=== PATIENT | female | born 1950 | race Two or more races ===

== ENCOUNTER 2022-11-02 17:59 | Inpatient (IN) | payer MEDICARE, OTHER ==
[~2022-11-02] VITALS: Ht 160 cm; Wt 95.3 kg
--- NOTE | 2022-11-02 18:26 | NUR ---
Jonatan AOx4, able to express her concerns. States she has had diarrhea x4 days. Generalized edema and weakness. Discussed plan of care, patient verbalized agreement. All safety precautions taken.
[2022-11-02] MEDS ORDERED: IV NS 0.9% 1,000 ML BAG IV ONE (18:30)
--- NOTE | 2022-11-02 18:50 | NUR ---
Cultures collected, sent to lab
--- NOTE | 2022-11-02 18:50 | NUR ---
Urine collected, sent to lab
[2022-11-02 19:06] LABS: BASOPHILS # (AUTO) 0.1 K/uL (0.0-0.2); BASOPHILS % (AUTO) 0.3 % (0.0-2.0); EOSINOPHILS % (AUTO) 0.2 % (0.0-6.0); HEMATOCRIT 35 % (33-45); HEMOGLOBIN 10.9 g/dL (11.5-14.8); LYMPHOCYTES # (AUTO) 0.7 K/uL (0.8-4.8); LYMPHOCYTES % (AUTO) 2.5 % (20.0-44.0); MEAN CORPUSCULAR HGB CONC 32 g/dl (31.0-36.0); MEAN CORPUSCULAR VOLUME 97 fL (82-100); MONOCYTES # (AUTO) 2.4 K/uL (0.1-1.30); MONOCYTES % (AUTO) 8.5 % (2.0-12.0); NEUTROPHILS # (AUTO) 25.5 K/uL (1.8-8.9); NEUTROPHILS % (AUTO) 88.5 % (43.0-81.0); PLATELET COUNT (AUTO) 225 K/uL (150-450); RED BLOOD CELL COUNT(AUTO) 3.55 MIL/uL (4.0-5.2); WHITE BLOOD COUNT (AUTO) 28.7 K/uL (4.3-11.0)
[2022-11-02 19:18] LABS: CALCIUM, SERUM 8.6 mg/dL (8.5-10.1); CARBON DIOXIDE 31 mmol/L (21-32); CHLORIDE 96 mmol/L (98-107); CREATININE 2.6 mg/dL (0.6-1.3); GLUCOSE 107 mg/dL (74-106); SODIUM SERUM 134 mmol/L (136-145); UREA NITROGEN, BLOOD 42 mg/dL (7-18)
[2022-11-02 19:31] LABS: ALANINE AMINOTRANSFERASE 13 U/L (12-78); ALBUMIN 2.1 g/dL (3.4-5.0); ALKALINE PHOSPHATASE 111 U/L (46-116); ASPARTATE AMINOTRANSFERASE 9 U/L (15-37); BILIRUBIN,DIRECT 0.2 mg/dL (0.0-0.2); BILIRUBIN,TOTAL 0.5 mg/dL (0.2-1.0); TOTAL PROTEIN, SERUM 5.8 g/dL (6.4-8.2)
--- NOTE | 2022-11-02 20:54 | NUR ---
MOVE SHEET SUBMITTED
[2022-11-02] MEDS ORDERED: VANCOMYCIN HCL 1.25 GM in IV D5W 260 ML IV ONE (21:00)
[2022-11-02] MEDS ORDERED: PIPERACILLIN /TAZOBACTAM 2.25 G in IV D5W 50 ML IV ONE (21:00)
[2022-11-02] MEDS ORDERED: VANCOMYCIN 1 GM /D5W 250 ML PB IV ONE (21:17)
[2022-11-02] MEDS ORDERED: PIPERACI/TAZO 3.375GM/D5W 50ML PB IV ONE (21:17)
[2022-11-02] MEDS ORDERED: VANCOMYCIN 1 GM in IV D5W 250 ML IV ONE (22:00)
[2022-11-02] MEDS ORDERED: MORPHINE SULFATE INJ 2 MG/ML DISP.SYRIN IV PRN (22:30)
[2022-11-03] VITALS (28 sets, daily range): BP systolic 69–142; BP diastolic 39–87
[2022-11-03] MEDS: IV NS 0.9% 1,000 ML IV SCH ×3 (01:19→19:34)
--- NOTE | 2022-11-03 01:25 | NUR ---
STOOL SPECIMENT FOR CDIFF SENT TO LAB
--- NOTE | 2022-11-03 01:30 | NUR ---
Pt with loose stool. Bottom excoriated. C-diff sample sent to lab.
--- NOTE | 2022-11-03 03:02 | NUR ---
Texted Dr. Key regarding persisitent hypotention of SBP in the 70's to 80's over Diastolic os 40's-50's.
--- NOTE | 2022-11-03 03:10 | NUR ---
Dr. Key upgraded pt. to ICU and to start levophed.
--- NOTE | 2022-11-03 03:22 | NUR ---
ICU 254
[2022-11-03] MEDS ORDERED: NOREPINEPHRINE 8MG/250ML RTU 250 ML IV ONE (03:25)
[2022-11-03] MEDS ORDERED: NOREPINEPHRINE 8 MG in IV NS 0.9% 242 ML IV PRN ×2 (03:30→05:00)
--- NOTE | 2022-11-03 03:59 | NUR ---
Levophed started at 0.1mcg/kg/min.
[2022-11-03] MEDS ORDERED: CEFEPIME 1 GM in IV D5W 50 ML IV ONE (04:00)
--- NOTE | 2022-11-03 04:30 | NUR ---
Transfered pt to ICU via ACLS protocol accompanied by RN and EMT.
--- NOTE | 2022-11-03 04:40 | NUR ---
Report given to Russ IQBAL with all questions answered.
[2022-11-03] MEDS ORDERED: CEFEPIME 1 GM VIAL ONE ×2 (05:05→05:07)
--- NOTE | 2022-11-03 05:20 | NUR ---
PILOT CONTROL OPERATOR AT PT'S BEDSIDE
--- NOTE | 2022-11-03 05:30 | NUR ---
ICU/RN: PT ADMITTED TO ROOM 254. ADMISSION ASSESSMENT COMPLETE. PT NOTED WITH LOOSE BM. LINENS CHANGED. PT CLEANED.
[2022-11-03 05:53] LABS: BILIRUBIN,TOTAL 0.6 mg/dL (0.2-1.0); CALCIUM, SERUM 8.6 mg/dL (8.5-10.1); CREATININE 2.3 mg/dL (0.6-1.3); MAGNESIUM 1.9 mg/dL (1.8-2.4); PHOSPHORUS 3.6 mg/dL (2.5-4.9); POTASSIUM 4.1 mmol/L (3.5-5.1); TOTAL PROTEIN, SERUM 5.8 g/dL (6.4-8.2)
--- NOTE | 2022-11-03 07:09 | NUR ---
RECEIVED REPORT FROM [facility] RASHEED IVERSON. WILL CONTINUE PLAN OF CARE
--- NOTE | 2022-11-03 07:56 | NUR ---
PATIENT REQUESTED TYLENOL FOR HEADACHE. 08/23 PAIN. WILL ADMINISTER AND CONTINUE TO ASSESS.
[2022-11-03] MEDS: ACETAMINOPHEN 325 MG TABLET PO PRN (07:58)
--- NOTE | 2022-11-03 08:56 | NUR ---
PAIN REASSESSMENT. PATIENT NOW EXPRESSING 0/10 PAIN.
[2022-11-03] MEDS: VANCOMYCIN HCL 125 MG/2.5 ML ORAL.SUSP PO SCH ×3 (09:28→18:11)
[2022-11-03] MEDS: CHOLESTYRAMINE/ASPARTAME 4 G/PKT PACKET PO SCH ×2 (09:28→21:16)
[2022-11-03] MEDS ORDERED: ATOR10TA PO (09:33)
[2022-11-03] MEDS ORDERED: SENN-261 PO (09:33)
[2022-11-03] MEDS ORDERED: ASPI-1169 PO (09:33)
[2022-11-03] MEDS ORDERED: DOCU-141 PO (09:33)
[2022-11-03] MEDS ORDERED: ACET-2605 PO ×2 (09:33)
[2022-11-03] MEDS ORDERED: ACET-868 PO (09:33)
[2022-11-03] MEDS ORDERED: LIDO30AD10 TP (09:33)
[2022-11-03] MEDS ORDERED: ASCO-352 PO (09:33)
[2022-11-03] MEDS ORDERED: CHOL100043 PO (09:33)
[2022-11-03] MEDS ORDERED: NITR0.4T48 SL (09:33)
[2022-11-03] MEDS ORDERED: ALBU2.5V38 IH (09:33)
[2022-11-03] MEDS ORDERED: LACT1CAP71 PO (09:33)
[2022-11-03] MEDS ORDERED: GABA-532 PO (09:33)
[2022-11-03] MEDS ORDERED: MULT-447 PO (09:33)
[2022-11-03] MEDS ORDERED: METO25TA3 PO (09:33)
[2022-11-03] MEDS ORDERED: FLUT1DIS3 IH (09:33)
[2022-11-03] MEDS ORDERED: CRAN425C6 PO (09:33)
[2022-11-03] MEDS ORDERED: ALEN70TA80 PO (09:33)
[2022-11-03] MEDS ORDERED: AMIN30LI2 PO (09:33)
[2022-11-03] MEDS ORDERED: MAGN400O6 PO (09:33)
--- NOTE | 2022-11-03 09:39 | NUR ---
PICC LINE NURSE AT BEDSIDE
[2022-11-03 09:45] LABS: BASOPHILS # (AUTO) 0.1 K/uL (0.0-0.2); BASOPHILS % (AUTO) 0.3 % (0.0-2.0); EOSINOPHILS % (AUTO) 0.1 % (0.0-6.0); HEMATOCRIT 36 % (33-45); HEMOGLOBIN 11.1 g/dL (11.5-14.8); LYMPHOCYTES # (AUTO) 1.1 K/uL (0.8-4.8); LYMPHOCYTES % (AUTO) 4.7 % (20.0-44.0); MEAN CORPUSCULAR HGB CONC 31 g/dl (31.0-36.0); MEAN CORPUSCULAR VOLUME 100 fL (82-100); MONOCYTES # (AUTO) 3.8 K/uL (0.1-1.30); MONOCYTES % (AUTO) 16.2 % (2.0-12.0); NEUTROPHILS # (AUTO) 18.5 K/uL (1.8-8.9); NEUTROPHILS % (AUTO) 78.7 % (43.0-81.0); PLATELET COUNT (AUTO) 219 K/uL (150-450); RED BLOOD CELL COUNT(AUTO) 3.59 MIL/uL (4.0-5.2); WHITE BLOOD COUNT (AUTO) 23.5 K/uL (4.3-11.0)
--- NOTE | 2022-11-03 10:24 | NUR ---
RECEIVED VERBAL ORDER FROM NURSE PRACTITIONER ANGY LUJAN FOR ONE TIME NORMAL SALINE BOLUS OF 500 MLS. ORDERED AND CARRIED OUT. Addendum: 11/03/22 at 1033 by MAXIM NOLAND RN RECEIVED ORDER EDIT. NOW ONE TIME BOLUS 1,000 MLS. WILL CARRY OUT Addendum: 11/03/22 at 1034 by MAXIM NOLAND RN 500 ML BOLUS NOT GIVEN
[2022-11-03] MEDS ORDERED: IV NS 0.9% 1,000 ML IV ONE (10:30)
[2022-11-03] MEDS ORDERED: IV NS 0.9% 500 ML BAG IV ONE (10:30)
--- NOTE | 2022-11-03 10:49 | NUR ---
RECEIVED CALL FROM LABORATORY. PATIENT POSITIVE FOR C. DIFF. WILL INSERT RECTAL TUBE. Addendum: 11/03/22 at 1243 by MAXIM NOLAND RN RECTAL TUBE AND PUREWICK IN PLACE. NO URINE OUTPUT AT THIS TIME. RECTAL TUBE DRAINING OUTPUT.
[2022-11-03] MEDS: ONDANSETRON HCL/PF 4 MG/2 ML VIAL IVP PRN (11:49)
--- NOTE | 2022-11-03 11:50 | NUR ---
PATIENT REPORTED NAUSEA. ADMINISTERED PRN ZOFRAN IV PUSH.
--- NOTE | 2022-11-03 15:00 | NUR ---
MORFIN CATHETER INSERTED DUE TO PATIENT RETAINING URINE. YELLOW CLOUDY OUTPUT NOTED
[2022-11-03 15:09] LABS: LYMPHOCYTES % (MANUAL) 2 % (16-48); MONOCYTES % (MANUAL) 8 % (0-11.0); NEUTROPHILS % (MANUAL) 90 (42-76)
[2022-11-03] MEDS ORDERED: CEFEPIME 2 GM in IV D5W 100 ML IV SCH (16:00)
[2022-11-03 16:51] LABS: BILIRUBIN,URINE NEGATIVE (NEGATIVE); COLOR,URINE YELLOW (YELLOW); LEUKOCYTE ESTERASE ,URINE 3+ (NEGATIVE); NITRITE, URINE NEGATIVE (NEGATIVE); PH,URINE 6.5 (5.0-8.0); PROTEIN,URINE 1+ mg/dl (NEGATIVE); UGLUCOSE NEGATIVE (NEGATIVE); UROBILINOGEN,URINE 0.2 EU/dL (0.2)
[2022-11-03 17:02] LABS: CREATININE, URINE 57.5 MG/DL (30.0-125.0)
--- NOTE | 2022-11-03 17:10 | NUR ---
PATIENT READING SINUS TACHYCARDIA ON BEDSIDE MONITOR WITH OCCASIONAL PVCs. PRIMARY PROVIDER NOTIFIED. RECOMMENDED SWITCHING PRESSORS FROM LEVOPHED TO NEOSYNEPHIRINE. CURRENTLY AWAITING ORDER.
[2022-11-03] MEDS: METRONIDAZOLE 500MG/ NS 100ML 500 MG in PREMIX 1 EA IV SCH ×2 (17:43→21:15)
[2022-11-03 17:49] LABS: BACTERIA,URINE Moderate /HPF (None Seen); RBC,URINE 21-50 /HPF (0-2); SQUAMOUS EPITHELIAL CELL,UR Few /HPF (None Seen); WBC,URINE 51-80 /HPF (0-3)
[2022-11-03 17:51] LABS: YEAST,URINE Moderate /HPF (None Seen)
--- NOTE | 2022-11-03 18:00 | NUR ---
MORFIN EMPTIED, NOTED REDISH TINGE.
[2022-11-03] MEDS: PHENYLEPHRINE 100 MG in IV NS 0.9% 240 ML IV PRN (18:12)
--- NOTE | 2022-11-03 19:39 | NUR ---
HAND OFF GIVEN TO RASHEED LANZA FOR CONTINUATION OF CARE.
--- NOTE | 2022-11-03 20:00 | NUR ---
Received patient AAOX3.ST with occasional pvc's.Hemodynamically unstable.Miguel Angel Synephrine gtt infusing and will titrate accordingly.Respiration even and unlabored with O2 1LNC saturation 98%. Patient denies any discomfort.FC to gravity and Flexi seal in place draining liquid stool.IVF infusing site intact.Turned and repositioned.Plan of care implemented.Contact isolation precaution observed. Call light at bedside.Continue monitoring.
[2022-11-03] MEDS ORDERED: VANCOMYCIN 0.75 GM in IV D5W 250 ML IV SCH (22:00)
[2022-11-04] VITALS (73 sets, daily range): BP systolic 83–134; BP diastolic 41–97
[2022-11-04] MEDS: VANCOMYCIN HCL 125 MG/2.5 ML ORAL.SUSP PO SCH ×4 (00:44→17:20)
[2022-11-04] MEDS: IV NS 0.9% 1,000 ML IV SCH (03:40)
[2022-11-04] MEDS: METRONIDAZOLE 500MG/ NS 100ML 500 MG in PREMIX 1 EA IV SCH ×3 (05:09→21:17)
[2022-11-04 05:35] LABS: BASOPHILS # (AUTO) 0.1 K/uL (0.0-0.2); BASOPHILS % (AUTO) 0.5 % (0.0-2.0); EOSINOPHILS % (AUTO) 0.1 % (0.0-6.0); HEMATOCRIT 29 % (33-45); HEMOGLOBIN 9.2 g/dL (11.5-14.8); LYMPHOCYTES # (AUTO) 1.1 K/uL (0.8-4.8); LYMPHOCYTES % (AUTO) 5.9 % (20.0-44.0); MEAN CORPUSCULAR HGB CONC 32 g/dl (31.0-36.0); MEAN CORPUSCULAR VOLUME 99 fL (82-100); MONOCYTES # (AUTO) 2.7 K/uL (0.1-1.30); MONOCYTES % (AUTO) 14.7 % (2.0-12.0); NEUTROPHILS # (AUTO) 14.4 K/uL (1.8-8.9); NEUTROPHILS % (AUTO) 78.8 % (43.0-81.0); PLATELET COUNT (AUTO) 222 K/uL (150-450); RED BLOOD CELL COUNT(AUTO) 2.96 MIL/uL (4.0-5.2); WHITE BLOOD COUNT (AUTO) 18.3 K/uL (4.3-11.0)
[2022-11-04 06:53] LABS: CALCIUM, SERUM 7.6 mg/dL (8.5-10.1); CREATININE 1.2 mg/dL (0.6-1.3); MAGNESIUM 1.5 mg/dL (1.8-2.4); PHOSPHORUS 2.7 mg/dL (2.5-4.9); POTASSIUM 3.3 mmol/L (3.5-5.1)
--- NOTE | 2022-11-04 07:08 | NUR ---
RECEIVED REPORT FROM [facility] RASHEED LANZA. WILL CONTINUE PLAN OF CARE AND ANTICIPATE NEEDS.
--- NOTE | 2022-11-04 07:17 | NUR ---
WOUND CARE CONSULT: PT PRESENTS WITH SACRAL DEEP TISSUE INJURY OVER SCARRING, PRESENT ON ADMISSION. MORFIN CATH AND RECTAL TUBE NOTED. RECOMMENDATIONS MADE FOR SKIN PROTECTION. DISCUSSED WITH NURSING STAFF. [facility] M D IN AGREEMENT WITH PLAN OF CARE. Addendum: 11/04/22 at 0719 by SHY GRAMAJO WNDNU Amended: Links added.
[2022-11-04] MEDS ORDERED: Z GUARD REMEDY 4 OZ OINT TP PRN (07:30)
[2022-11-04] MEDS: ALENDRONATE 70 MG TABLET PO SCH (07:30)
[2022-11-04] MEDS: Z GUARD REMEDY 4 OZ OINT TP SCH (09:03)
[2022-11-04] MEDS: CHOLESTYRAMINE/ASPARTAME 4 G/PKT PACKET PO SCH ×2 (09:46→21:16)
[2022-11-04] MEDS: Magnesium 1GM/D5W 100ML PREMIX 100 ML IV SCH ×4 (09:46→14:03)
[2022-11-04] MEDS: POTASSIUM CL. PREMIX PERIPHER. 50 ML IV SCH ×2 (09:46→11:12)
[2022-11-04] MEDS: ONDANSETRON HCL/PF 4 MG/2 ML VIAL IVP PRN (10:42)
--- NOTE | 2022-11-04 11:49 | NUR ---
PATIENT CONTINUES TO VOMIT GREEN REGURGITATION DESPITE PRN ZOFRAN ADMINISTRATION. REQUESTED REGLAN FROM PROVIDER. CURRENTLY AWAITING ORDER.
[2022-11-04] MEDS: GABAPENTIN 100 MG CAPSULE PO SCH ×2 (12:50→17:19)
[2022-11-04] MEDS ORDERED: METOCLOPRAMIDE HCL 10 MG/2 ML VIAL IV PRN (13:00)
[2022-11-04] MEDS ORDERED: NITROGLYCERIN 0.4 MG/TAB BOTTLE SL PRN (13:00)
[2022-11-04] MEDS: IV NS 0.9% 1,000 ML IV PRN (15:53)
[2022-11-04] MEDS: PROSOURCE / PROSTAT (PYXIS) 30 ML UDC PO SCH (16:58)
[2022-11-04] MEDS ORDERED: Medication Not On Formulary EA (Cranberry Extract (Cranberry) 425 MG) PO SCH (17:00)
[2022-11-04] MEDS: PHENYLEPHRINE 100 MG in IV NS 0.9% 240 ML IV PRN (17:50)
--- NOTE | 2022-11-04 19:15 | NUR ---
HAND OFF REPORT GIVEN TO RASHEED OLIVERA FOR CONTINUATION OF CARE. PATIENT REMAINS IN ROOM. SINUS RYTHYM ON BEDSIDE MONITOR, ON 1 LITER OXYGEN VIA NASAL CANULA. MORFIN AND FLEXISEAL INTACT. SAFETY MEASURES IMPLEMENTED. IV ACCESS' MAINTAINED. FLUIDS AND PRESSOR INFUSING ORDERED.
--- NOTE | 2022-11-04 20:00 | NUR ---
Received report from day shift. Patient alert and oriented X4. VS stable. With hubbard to gravity and flexi seal intact.
[2022-11-04] MEDS: ATORVASTATIN 10 MG TABLET PO SCH (21:16)
[2022-11-04] MEDS: DOCUSATE SODIUM 100 MG CAPSULE PO SCH (21:18)
[2022-11-04] MEDS: SENNOSIDES 8.6 MG TABLET PO SCH (21:19)
[2022-11-05] VITALS (40 sets, daily range): BP systolic 85–128; BP diastolic 47–95
[2022-11-05] MEDS: IV NS 0.9% 1,000 ML IV PRN ×4 (00:13→19:43)
[2022-11-05] MEDS: VANCOMYCIN HCL 125 MG/2.5 ML ORAL.SUSP PO SCH ×5 (00:14→23:47)
[2022-11-05 04:10] LABS: BASOPHILS # (AUTO) 0.1 K/uL (0.0-0.2); BASOPHILS % (AUTO) 0.6 % (0.0-2.0); EOSINOPHILS % (AUTO) 0.9 % (0.0-6.0); HEMATOCRIT 31 % (33-45); HEMOGLOBIN 9.7 g/dL (11.5-14.8); LYMPHOCYTES # (AUTO) 1.2 K/uL (0.8-4.8); LYMPHOCYTES % (AUTO) 10.7 % (20.0-44.0); MEAN CORPUSCULAR HGB CONC 32 g/dl (31.0-36.0); MEAN CORPUSCULAR VOLUME 98 fL (82-100); MONOCYTES # (AUTO) 1.5 K/uL (0.1-1.30); MONOCYTES % (AUTO) 13.2 % (2.0-12.0); NEUTROPHILS # (AUTO) 8.6 K/uL (1.8-8.9); NEUTROPHILS % (AUTO) 74.6 % (43.0-81.0); PLATELET COUNT (AUTO) 219 K/uL (150-450); RED BLOOD CELL COUNT(AUTO) 3.13 MIL/uL (4.0-5.2); WHITE BLOOD COUNT (AUTO) 11.6 K/uL (4.3-11.0)
[2022-11-05 04:51] LABS: CALCIUM, SERUM 8.1 mg/dL (8.5-10.1); CARBON DIOXIDE 22 mmol/L (21-32); CHLORIDE 108 mmol/L (98-107); CREATININE 0.7 mg/dL (0.6-1.3); GLUCOSE 92 mg/dL (74-106); MAGNESIUM 2.4 mg/dL (1.8-2.4); PHOSPHORUS 2.3 mg/dL (2.5-4.9); POTASSIUM 3.5 mmol/L (3.5-5.1); SODIUM SERUM 139 mmol/L (136-145); UREA NITROGEN, BLOOD 17 mg/dL (7-18)
[2022-11-05] MEDS: METRONIDAZOLE 500MG/ NS 100ML 500 MG in PREMIX 1 EA IV SCH ×3 (04:57→21:20)
[2022-11-05] MEDS: IV NS 0.9% 250 ML IV PRN ×2 (05:04→16:29)
--- NOTE | 2022-11-05 06:56 | NUR ---
Stable during the shift. No distress noted. Will endorse to day shift for continuity of care.
--- NOTE | 2022-11-05 07:35 | NUR ---
ICU/RN PT IS RESTING ON 1 L N/C SAT O2-100%.AFEBRILE.NO PAIN REPORTED AT THIS TIME.AWAKE,ALERT,ORIENTED-4.ON NEOSYNEPHRINE DRIP. TO SUPPORT BP. RIGHT UPPER ARM PICC LINE.PT HAS F/C DRAINING WITH CLOUDY YELLOW URINE.AND RECTAL TUBE DRAINING WITH GREEN LIQUID STOOL.LABS REVIEW.REDNESS ON ELA AREA NOTED.
[2022-11-05] MEDS: LACTOBACILLUS RHAMNOSUS GG 1 EACH CAP.SPRINK PO SCH (08:12)
[2022-11-05] MEDS: CHOLECALCIFEROL 1,000 UNIT TABLET (VIT D3) PO SCH (08:12)
[2022-11-05] MEDS: MULTIVIT W/MINERALS 1 TAB TABLET PO SCH (08:13)
[2022-11-05] MEDS: ASCORBIC ACID 500 MG TABLET PO SCH (08:13)
[2022-11-05] MEDS: FLUTICASONE/VILANTEROL 1 EACH BLST.W.DEV IH SCH (08:13)
[2022-11-05] MEDS: ASPIRIN 81 MG TAB.CHEW PO SCH (08:13)
[2022-11-05] MEDS: ALENDRONATE 70 MG TABLET PO SCH (08:13)
[2022-11-05] MEDS: LIDOCAINE 5% (PATCH) 1 EA PATCH TP SCH (08:13)
[2022-11-05] MEDS: Z GUARD REMEDY 4 OZ OINT TP SCH (08:14)
[2022-11-05] MEDS: GABAPENTIN 100 MG CAPSULE PO SCH ×3 (08:26→16:06)
[2022-11-05] MEDS: PROSOURCE / PROSTAT (PYXIS) 30 ML UDC PO SCH ×2 (08:27→16:06)
--- NOTE | 2022-11-05 09:00 | NUR ---
ICU/RN DUE MEDS ARE GIVEN ORDERED.PT REFUSED TO EAT BREAKFAST.
[2022-11-05] MEDS ORDERED: NEUTRA PHOS 1 POWD.PACKET PO ONE (10:00)
[2022-11-05] MEDS: CHOLESTYRAMINE/ASPARTAME 4 G/PKT PACKET PO SCH ×2 (10:58→21:19)
[2022-11-05] MEDS: PHENYLEPHRINE 100 MG in IV NS 0.9% 240 ML IV PRN (13:32)
--- NOTE | 2022-11-05 15:03 | NUR ---
ICU/RN PM CARE PROVIDED.WOUND DRESSING DONE ORDERED.REPOSITION FOR COMFORT.CONTINUE MONITORING.
[2022-11-05] MEDS: ACETAMINOPHEN 325 MG TABLET PO PRN (15:35)
[2022-11-05] MEDS: ENSURE CLEAR 237 ML LIQUID (MIX BERRY) PO SCH ×2 (17:15→17:16)
--- NOTE | 2022-11-05 19:15 | NUR ---
RN OPENING NOTES RECEIVED PATIENT IN BED AWAKE AND ORIENTED. VS STABLE. ON NASAL CANNULA AT 1 LPM SATURATING MYRNA 96%. NO SOB NOTED. HAS NEOSENEPHRINE GTT IN PROGRESS AT 0.9 MCG/KG/MIN. WITH NS INFUSING AT 150 ML/HR AND ALSO WITH TKO NS AT 10 ML/HR. MORFIN CATHETER TO GRAVITY AND FLEXI SEAL IN PLACE.WILL CONTINUE TO MONITOR DURING SHIFT.
[2022-11-05] MEDS: ATORVASTATIN 10 MG TABLET PO SCH (21:19)
[2022-11-05] MEDS: DOCUSATE SODIUM 100 MG CAPSULE PO SCH (21:21)
[2022-11-05] MEDS: SENNOSIDES 8.6 MG TABLET PO SCH (21:22)
[2022-11-06] VITALS (55 sets, daily range): BP systolic 82–132; BP diastolic 43–94
[2022-11-06] MEDS: IV NS 0.9% 1,000 ML IV PRN ×3 (02:18→17:27)
[2022-11-06] MEDS: ACETAMINOPHEN 325 MG TABLET PO PRN (02:19)
--- NOTE | 2022-11-06 02:20 | NUR ---
RN NOTES PATIENT C/O OF 5/10 LOWER BACK PAIN, ACETAMINOPHEN 650MG GIVEN, REPOSITION PATIENT FOR COMFORT.
[2022-11-06 05:04] LABS: BASOPHILS # (AUTO) 0.1 K/uL (0.0-0.2); BASOPHILS % (AUTO) 0.6 % (0.0-2.0); EOSINOPHILS % (AUTO) 1.7 % (0.0-6.0); HEMATOCRIT 31 % (33-45); HEMOGLOBIN 9.8 g/dL (11.5-14.8); LYMPHOCYTES # (AUTO) 1.4 K/uL (0.8-4.8); LYMPHOCYTES % (AUTO) 14.8 % (20.0-44.0); MEAN CORPUSCULAR HGB CONC 32 g/dl (31.0-36.0); MEAN CORPUSCULAR VOLUME 99 fL (82-100); MONOCYTES # (AUTO) 1.2 K/uL (0.1-1.30); MONOCYTES % (AUTO) 12.2 % (2.0-12.0); NEUTROPHILS # (AUTO) 6.7 K/uL (1.8-8.9); NEUTROPHILS % (AUTO) 70.7 % (43.0-81.0); PLATELET COUNT (AUTO) 275 K/uL (150-450); RED BLOOD CELL COUNT(AUTO) 3.13 MIL/uL (4.0-5.2); WHITE BLOOD COUNT (AUTO) 9.5 K/uL (4.3-11.0)
[2022-11-06] MEDS: VANCOMYCIN HCL 125 MG/2.5 ML ORAL.SUSP PO SCH ×3 (05:21→17:26)
[2022-11-06] MEDS: METRONIDAZOLE 500MG/ NS 100ML 500 MG in PREMIX 1 EA IV SCH ×3 (05:22→21:23)
[2022-11-06 05:49] LABS: CALCIUM, SERUM 7.8 mg/dL (8.5-10.1); CARBON DIOXIDE 20 mmol/L (21-32); CHLORIDE 111 mmol/L (98-107); CREATININE 0.6 mg/dL (0.6-1.3); GLUCOSE 102 mg/dL (74-106); PHOSPHORUS 2.6 mg/dL (2.5-4.9); POTASSIUM 2.9 mmol/L (3.5-5.1); SODIUM SERUM 142 mmol/L (136-145); UREA NITROGEN, BLOOD 12 mg/dL (7-18)
[2022-11-06] MEDS: PHENYLEPHRINE 100 MG in IV NS 0.9% 240 ML IV PRN (05:58)
--- NOTE | 2022-11-06 07:00 | NUR ---
RN END OF SHIFT NOTES PATIENT STABLE. NEOSENEPHRINE GTT TITRATED ACCORDINGLY. MORFIN INTACT AND DRAINING CLOUDY COLORED URINE TOWARDS END OF SHIFT. FLEXISEAL INTACT. ALERT AND ORIENTED. ENDORSED TO ONCOMING SHIFT FOR CONTINUITY OF CARE. ORDERED SCD.
[2022-11-06] MEDS: FLUTICASONE/VILANTEROL 1 EACH BLST.W.DEV IH SCH (08:17)
[2022-11-06] MEDS: LIDOCAINE 5% (PATCH) 1 EA PATCH TP SCH (08:17)
[2022-11-06] MEDS: PROSOURCE / PROSTAT (PYXIS) 30 ML UDC PO SCH ×2 (08:17→16:31)
[2022-11-06] MEDS: ASPIRIN 81 MG TAB.CHEW PO SCH (08:18)
[2022-11-06] MEDS: CHOLECALCIFEROL 1,000 UNIT TABLET (VIT D3) PO SCH (08:18)
[2022-11-06] MEDS: MULTIVIT W/MINERALS 1 TAB TABLET PO SCH (08:18)
[2022-11-06] MEDS: LACTOBACILLUS RHAMNOSUS GG 1 EACH CAP.SPRINK PO SCH (08:18)
[2022-11-06] MEDS: ASCORBIC ACID 500 MG TABLET PO SCH (08:18)
[2022-11-06] MEDS: ENSURE CLEAR 237 ML LIQUID (MIX BERRY) PO SCH ×3 (08:19→16:32)
[2022-11-06] MEDS: GABAPENTIN 100 MG CAPSULE PO SCH ×3 (08:19→16:31)
[2022-11-06] MEDS: Z GUARD REMEDY 4 OZ OINT TP SCH (08:20)
--- NOTE | 2022-11-06 09:00 | NUR ---
ICU/RN DUE MEDS ARE GIVEN ORDERED.PT IS STILL ON NEOSYNEPHRINE DRIP.IV FLUIDS INFUSING ORDERED.AFEBRILE.NO PAIN REPORTED AT THIS TIME.PT EATS ONLY 25% FROM HER MEAL TRAY.LABS REVIEW. NOTIFIED.NEW ORDERS RECEIVED.
[2022-11-06] MEDS: POTASSIUM CL. PREMIX PERIPHER. 50 ML IV SCH ×6 (09:56→21:15)
[2022-11-06] MEDS: CHOLESTYRAMINE/ASPARTAME 4 G/PKT PACKET PO SCH ×2 (10:48→21:24)
[2022-11-06] MEDS: ONDANSETRON HCL/PF 4 MG/2 ML VIAL IVP PRN (15:22)
[2022-11-06] MEDS ORDERED: PANTOPRAZOLE 40 MG VIAL IV SCH (15:30)
--- NOTE | 2022-11-06 19:10 | NUR ---
RN OPENING NOTES RECEIVED PATIENT FROM DAY SHIFT AWAKE AND ALERT. 2 LITERS NASAL CANNULA ON SATURATING AT 99%. NEOSYNEPHRINE GTT INFUSING AT 1 MCQ/KG/MIN WITH STABLE B/P. VS STABLE. NS AT 150 CC/HR INFUSING. FLEXI SEAL AND MORFIN CATHETER INTACT. MORFIN DRAINING CLOUDY URINE WITH SEDIMENTS.
[2022-11-06] MEDS: ATORVASTATIN 10 MG TABLET PO SCH (21:24)
[2022-11-06] MEDS: DOCUSATE SODIUM 100 MG CAPSULE PO SCH (21:24)
[2022-11-06] MEDS: SENNOSIDES 8.6 MG TABLET PO SCH (21:25)
[2022-11-07] VITALS (63 sets, daily range): BP systolic 88–144; BP diastolic 48–94
[2022-11-07] MEDS: IV NS 0.9% 1,000 ML IV PRN ×2 (00:34→06:59)
[2022-11-07] MEDS: VANCOMYCIN HCL 125 MG/2.5 ML ORAL.SUSP PO SCH ×5 (00:49→23:03)
[2022-11-07] MEDS: PHENYLEPHRINE 100 MG in IV NS 0.9% 240 ML IV PRN ×2 (01:30→17:22)
[2022-11-07 04:36] LABS: BASOPHILS # (AUTO) 0.1 K/uL (0.0-0.2); BASOPHILS % (AUTO) 0.7 % (0.0-2.0); EOSINOPHILS % (AUTO) 1.2 % (0.0-6.0); HEMATOCRIT 31 % (33-45); HEMOGLOBIN 9.8 g/dL (11.5-14.8); LYMPHOCYTES # (AUTO) 1.6 K/uL (0.8-4.8); LYMPHOCYTES % (AUTO) 12.7 % (20.0-44.0); MEAN CORPUSCULAR HGB CONC 31 g/dl (31.0-36.0); MEAN CORPUSCULAR VOLUME 98 fL (82-100); MONOCYTES % (AUTO) 8.3 % (2.0-12.0); NEUTROPHILS # (AUTO) 9.8 K/uL (1.8-8.9); NEUTROPHILS % (AUTO) 77.1 % (43.0-81.0); PLATELET COUNT (AUTO) 309 K/uL (150-450); RED BLOOD CELL COUNT(AUTO) 3.18 MIL/uL (4.0-5.2); WHITE BLOOD COUNT (AUTO) 12.7 K/uL (4.3-11.0)
[2022-11-07 04:56] LABS: CALCIUM, SERUM 7.2 mg/dL (8.5-10.1); CARBON DIOXIDE 22 mmol/L (21-32); CHLORIDE 113 mmol/L (98-107); CREATININE 0.6 mg/dL (0.6-1.3); GLUCOSE 119 mg/dL (74-106); MAGNESIUM 1.8 mg/dL (1.8-2.4); PHOSPHORUS 2.2 mg/dL (2.5-4.9); POTASSIUM 3.7 mmol/L (3.5-5.1); SODIUM SERUM 143 mmol/L (136-145); UREA NITROGEN, BLOOD 10 mg/dL (7-18)
[2022-11-07] MEDS: METRONIDAZOLE 500MG/ NS 100ML 500 MG in PREMIX 1 EA IV SCH ×3 (05:48→20:06)
--- NOTE | 2022-11-07 07:00 | NUR ---
RN OPENING NOTES RECEIVED PATIENT ON BED, DRWAZY , ORIENTED TO SELF AND PLACE, ON 1 LITERS 02 NASAL CANNULA O2 SAT WNL, NEOSYNEPHRINE GTT INFUSING AT 1.1 MCG/KG/MIN WITH FOR BP SUPPORT, NS AT 150 CC/HR INFUSING. FLEXI SEAL AND MORFIN CATHETER INTACT. MORFIN DRAINING CLOUDY URINE WITH SEDIMENTS. SR UP x3, CALL LIGHT WITHIN EASY REACH , CONTINUE TO MONITOR
[2022-11-07] MEDS: CHOLECALCIFEROL 1,000 UNIT TABLET (VIT D3) PO SCH (08:38)
[2022-11-07] MEDS: LACTOBACILLUS RHAMNOSUS GG 1 EACH CAP.SPRINK PO SCH (08:38)
[2022-11-07] MEDS: MULTIVIT W/MINERALS 1 TAB TABLET PO SCH (08:39)
[2022-11-07] MEDS: ASPIRIN 81 MG TAB.CHEW PO SCH (08:39)
[2022-11-07] MEDS: GABAPENTIN 100 MG CAPSULE PO SCH ×3 (08:39→16:54)
[2022-11-07] MEDS: ASCORBIC ACID 500 MG TABLET PO SCH (08:39)
[2022-11-07] MEDS: Z GUARD REMEDY 4 OZ OINT TP SCH (08:40)
[2022-11-07] MEDS: LIDOCAINE 5% (PATCH) 1 EA PATCH TP SCH (08:40)
[2022-11-07] MEDS: FLUTICASONE/VILANTEROL 1 EACH BLST.W.DEV IH SCH (08:42)
[2022-11-07] MEDS: PROSOURCE / PROSTAT (PYXIS) 30 ML UDC PO SCH ×2 (08:43→16:57)
[2022-11-07] MEDS: ENSURE CLEAR 237 ML LIQUID (MIX BERRY) PO SCH ×4 (09:00→17:24)
[2022-11-07] MEDS: CHOLESTYRAMINE/ASPARTAME 4 G/PKT PACKET PO SCH ×2 (10:15→21:52)
[2022-11-07] MEDS ORDERED: NEUTRA PHOS 1 POWD.PACKET PO ONE (11:00)
[2022-11-07] MEDS: methylPREDNISolone SOD SUCC 125 MG/2ML VIAL IV SCH ×2 (12:22→20:06)
--- NOTE | 2022-11-07 18:00 | NUR ---
RN END OF SHIFT NOTES PATIENT A/O X2-3. NO RESPIRATORY DISTRESS NOTED. ON NASAL CANNULA 1 LITER. ERIN GTT AT 0.6 MCG FOR BP SUPPORT. MORFIN INTACT AND DRAINING CLOUDY COLORED URINE NOTED. FLEXISEAL INTACT, NO LOOSE STOOL NOTED. WILL ENDORSE TO ONCOMING SHIFT FOR CONTINUITY OF CARE.
[2022-11-07] MEDS: SENNOSIDES 8.6 MG TABLET PO SCH (21:51)
[2022-11-07] MEDS: DOCUSATE SODIUM 100 MG CAPSULE PO SCH (21:51)
[2022-11-07] MEDS: ATORVASTATIN 10 MG TABLET PO SCH (21:51)
[2022-11-08] VITALS (42 sets, daily range): BP systolic 87–121; BP diastolic 51–82
[2022-11-08] MEDS: IV NS 0.9% 1,000 ML IV PRN ×2 (02:18→14:35)
[2022-11-08] MEDS: METRONIDAZOLE 500MG/ NS 100ML 500 MG in PREMIX 1 EA IV SCH ×3 (04:27→21:39)
[2022-11-08] MEDS: methylPREDNISolone SOD SUCC 125 MG/2ML VIAL IV SCH ×3 (04:27→21:39)
[2022-11-08] MEDS: VANCOMYCIN HCL 125 MG/2.5 ML ORAL.SUSP PO SCH ×4 (05:28→22:58)
[2022-11-08 05:49] LABS: BASOPHILS % (AUTO) 0.1 % (0.0-2.0); HEMATOCRIT 32 % (33-45); HEMOGLOBIN 9.9 g/dL (11.5-14.8); LYMPHOCYTES # (AUTO) 0.5 K/uL (0.8-4.8); LYMPHOCYTES % (AUTO) 6.2 % (20.0-44.0); MEAN CORPUSCULAR HGB CONC 31 g/dl (31.0-36.0); MEAN CORPUSCULAR VOLUME 99 fL (82-100); MONOCYTES # (AUTO) 0.1 K/uL (0.1-1.30); MONOCYTES % (AUTO) 1.1 % (2.0-12.0); NEUTROPHILS # (AUTO) 7.7 K/uL (1.8-8.9); NEUTROPHILS % (AUTO) 92.6 % (43.0-81.0); PLATELET COUNT (AUTO) 329 K/uL (150-450); WHITE BLOOD COUNT (AUTO) 8.3 K/uL (4.3-11.0)
[2022-11-08 06:07] LABS: CARBON DIOXIDE 20 mmol/L (21-32); CHLORIDE 114 mmol/L (98-107); CREATININE 0.6 mg/dL (0.6-1.3); GLUCOSE 133 mg/dL (74-106); MAGNESIUM 1.8 mg/dL (1.8-2.4); PHOSPHORUS 3.1 mg/dL (2.5-4.9); POTASSIUM 3.8 mmol/L (3.5-5.1); SODIUM SERUM 140 mmol/L (136-145); UREA NITROGEN, BLOOD 13 mg/dL (7-18)
--- NOTE | 2022-11-08 06:20 | NUR ---
pt slept through the night. tolerated meds well. neosynephrine titrated down to 0.2 mcg/kg/min from 0.05. MAP is still consistently above 65 and SBP above 90.
[2022-11-08 09:04] LABS: LYMPHOCYTES % (MANUAL) 3 % (16-48); METAMYELOCYTES % 2 % (0-0); MONOCYTES % (MANUAL) 2 % (0-11.0); NEUTROPHILS % (MANUAL) 93 (42-76)
[2022-11-08] MEDS: MULTIVIT W/MINERALS 1 TAB TABLET PO SCH (10:01)
[2022-11-08] MEDS: ASPIRIN 81 MG TAB.CHEW PO SCH (10:01)
[2022-11-08] MEDS: PANTOPRAZOLE 40 MG/PACK PACK PO SCH (10:01)
[2022-11-08] MEDS: LACTOBACILLUS RHAMNOSUS GG 1 EACH CAP.SPRINK PO SCH (10:01)
[2022-11-08] MEDS: PROSOURCE / PROSTAT (PYXIS) 30 ML UDC PO SCH ×2 (10:01→16:31)
[2022-11-08] MEDS: GABAPENTIN 100 MG CAPSULE PO SCH ×3 (10:01→16:31)
[2022-11-08] MEDS: ASCORBIC ACID 500 MG TABLET PO SCH (10:02)
[2022-11-08] MEDS: LIDOCAINE 5% (PATCH) 1 EA PATCH TP SCH (10:02)
[2022-11-08] MEDS: CHOLECALCIFEROL 1,000 UNIT TABLET (VIT D3) PO SCH (10:02)
[2022-11-08] MEDS: ENSURE CLEAR 237 ML LIQUID (MIX BERRY) PO SCH ×3 (10:02→16:31)
[2022-11-08] MEDS: Z GUARD REMEDY 4 OZ OINT TP SCH (10:03)
--- NOTE | 2022-11-08 10:05 | NUR ---
ICU/RN DUE MEDS ARE GIVEN ORDERED.PT EATS 25% FROM HER MEAL TRAY.PT IS STILL ON NEOSYNEPHRINE SMALL DOSE. AFEBRILE.NO PAIN REPORTED AT THIS TIME.F/C DRAINING WITH YELLOW URINE.RECTAL TUBE DRAINING WITH GREEN LIQUID STOOL.LABS REVIEW.CONTINUE MONITORING.
[2022-11-08] MEDS: FLUTICASONE/VILANTEROL 1 EACH BLST.W.DEV IH SCH (10:09)
[2022-11-08] MEDS: CHOLESTYRAMINE/ASPARTAME 4 G/PKT PACKET PO SCH ×2 (10:09→22:57)
--- NOTE | 2022-11-08 15:10 | NUR ---
ICU/RN PM CARE PROVIDED.REDNESS ON ELA AREA AND LOWER BACK NOTED.
[2022-11-08] MEDS: ALBUTEROL FS 2.5 MG/3 ML VIAL.NEB IH PRN (19:44)
--- NOTE | 2022-11-08 21:30 | NUR ---
ICU/FERMENTATION SCIENTIST @2100 MEDICATION OF COLACE AND SENOKOT NOT GIVEN DUE TO PT HAS CDIFF, ALONG WITH FLEXISEAL.
[2022-11-08] MEDS: ATORVASTATIN 10 MG TABLET PO SCH (21:34)
[2022-11-08] MEDS: DOCUSATE SODIUM 100 MG CAPSULE PO SCH (21:35)
[2022-11-08] MEDS: SENNOSIDES 8.6 MG TABLET PO SCH (21:35)
[2022-11-09] VITALS (14 sets, daily range): BP systolic 86–125; BP diastolic 56–88
[2022-11-09] MEDS: IV NS 0.9% 1,000 ML IV PRN ×2 (01:24→16:50)
[2022-11-09] MEDS: METRONIDAZOLE 500MG/ NS 100ML 500 MG in PREMIX 1 EA IV SCH ×3 (05:23→21:21)
[2022-11-09] MEDS: methylPREDNISolone SOD SUCC 125 MG/2ML VIAL IV SCH ×3 (05:24→21:21)
[2022-11-09] MEDS: VANCOMYCIN HCL 125 MG/2.5 ML ORAL.SUSP PO SCH ×3 (05:24→17:49)
[2022-11-09 05:34] LABS: BASOPHILS % (AUTO) 0.1 % (0.0-2.0); HEMATOCRIT 31 % (33-45); HEMOGLOBIN 9.7 g/dL (11.5-14.8); LYMPHOCYTES # (AUTO) 0.6 K/uL (0.8-4.8); LYMPHOCYTES % (AUTO) 4.8 % (20.0-44.0); MEAN CORPUSCULAR HGB CONC 31 g/dl (31.0-36.0); MEAN CORPUSCULAR VOLUME 97 fL (82-100); MONOCYTES # (AUTO) 0.2 K/uL (0.1-1.30); MONOCYTES % (AUTO) 1.3 % (2.0-12.0); NEUTROPHILS # (AUTO) 12.4 K/uL (1.8-8.9); NEUTROPHILS % (AUTO) 93.8 % (43.0-81.0); PLATELET COUNT (AUTO) 367 K/uL (150-450); RED BLOOD CELL COUNT(AUTO) 3.18 MIL/uL (4.0-5.2); WHITE BLOOD COUNT (AUTO) 13.2 K/uL (4.3-11.0)
[2022-11-09 06:24] LABS: CALCIUM, SERUM 8.1 mg/dL (8.5-10.1); CARBON DIOXIDE 19 mmol/L (21-32); CHLORIDE 113 mmol/L (98-107); CREATININE 0.8 mg/dL (0.6-1.3); GLUCOSE 141 mg/dL (74-106); MAGNESIUM 1.8 mg/dL (1.8-2.4); PHOSPHORUS 2.6 mg/dL (2.5-4.9); POTASSIUM 3.9 mmol/L (3.5-5.1); SODIUM SERUM 139 mmol/L (136-145); UREA NITROGEN, BLOOD 23 mg/dL (7-18)
--- NOTE | 2022-11-09 06:35 | NUR ---
ICU/PATTERN MECHANIC PT'S MORFIN WAS BLOODY, HAND IRRIGATED THE MORFIN TO LIGHT PINK. WILL MONITOR THIS PT.
[2022-11-09] MEDS: FLUTICASONE/VILANTEROL 1 EACH BLST.W.DEV IH SCH (09:00)
[2022-11-09] MEDS: LACTOBACILLUS RHAMNOSUS GG 1 EACH CAP.SPRINK PO SCH (09:09)
[2022-11-09] MEDS: LIDOCAINE 5% (PATCH) 1 EA PATCH TP SCH (09:09)
[2022-11-09] MEDS: GABAPENTIN 100 MG CAPSULE PO SCH ×4 (09:10→16:46)
[2022-11-09] MEDS: ASPIRIN 81 MG TAB.CHEW PO SCH (09:10)
[2022-11-09] MEDS: Z GUARD REMEDY 4 OZ OINT TP SCH (09:10)
[2022-11-09] MEDS: MULTIVIT W/MINERALS 1 TAB TABLET PO SCH (09:10)
[2022-11-09] MEDS: ENSURE CLEAR 237 ML LIQUID (MIX BERRY) PO SCH ×3 (09:10→17:00)
[2022-11-09] MEDS: CHOLECALCIFEROL 1,000 UNIT TABLET (VIT D3) PO SCH (09:10)
[2022-11-09] MEDS: PANTOPRAZOLE 40 MG/PACK PACK PO SCH (09:10)
[2022-11-09] MEDS: ASCORBIC ACID 500 MG TABLET PO SCH (09:13)
[2022-11-09] MEDS: PROSOURCE / PROSTAT (PYXIS) 30 ML UDC PO SCH ×2 (09:13→16:40)
--- NOTE | 2022-11-09 09:45 | NUR ---
PT DOWNGRADED TO TELE TO ROOM 304. PT IS AOX4.ABLE TO MAKE NEEDS KNOW. DENIES PAIN OR DISCOMFORT. NO SOB. NO DYSPNEA. F/C PATENT AND INTACT. NO HEMATURIA. YELLOW COLORED URINE. CLEAR. FLEXISEAL INTACT. DRAINING TO LIQUID BROWN STOOL. ISOLATION PRECAUTION OBSERVED. ENDORSED TO ALYSSA RN AT BEDSIDE. IN STABLE CONDITION. BELONGINGS ACCOUNTED FOR AND GIVEN TO ALYSSA RN. IV LINE FLUSHING WELL.
--- NOTE | 2022-11-09 10:00 | NUR ---
WIRING INSPECTOR NOTES RECEIVED PATIENT IN ICU, AOX4.ABLE TO MAKE NEEDS KNOW. DENIES PAIN OR DISCOMFORT. NO SOB. NO DYSPNEA. F/C PATENT AND INTACT. NO HEMATURIA. YELLOW COLORED URINE. CLEAR. FLEXISEAL INTACT. DRAINING TO LIQUID BROWN STOOL. ISOLATION PRECAUTION OBSERVED. REPORT GIVEN BY KAZ IQBAL AT BEDSIDE. SAFETY MEASURES IS IN PLACE. BED IN LOWEST AND LOCKED POSITION. SIDE RAILS UP X 2. BEDSIDE TABLE AND CALL LIGHT IS EASY REACH. BED ALARM IS ON. WILL CONTINUE TO MONITOR.
[2022-11-09] MEDS: CHOLESTYRAMINE/ASPARTAME 4 G/PKT PACKET PO SCH ×2 (10:54→22:35)
[2022-11-09] MEDS: ALBUTEROL FS 2.5 MG/3 ML VIAL.NEB IH PRN (13:53)
--- NOTE | 2022-11-09 18:23 | NUR ---
PUBLIC SAFETY DIRECTOR NOTES PATIENT AWAKE IN BED, AOX4.ABLE TO MAKE NEEDS KNOW. DENIES PAIN OR DISCOMFORT. NO SOB. NO DYSPNEA. F/C PATENT AND INTACT. NO HEMATURIA. YELLOW COLORED URINE. CLEAR. FLEXISEAL INTACT. DRAINING TO LIQUID BROWN STOOL. ISOLATION PRECAUTION OBSERVED SAFETY MEASURES IS IN PLACE. BED IN LOWEST AND LOCKED POSITION. SIDE RAILS UP X 2. BEDSIDE TABLE AND CALL LIGHT IS EASY REACH. BED ALARM IS ON.WILL ENDORSE TO THE RESIDENTIAL MORTGAGE UNDERWRITER NURSE FOR PEGGY.
--- NOTE | 2022-11-09 18:24 | NUR ---
RN NOTES ON TELE MONITOR CURRENTLY READS SINUS TACHYCARDIA 105.
--- NOTE | 2022-11-09 19:47 | NUR ---
noc rn opening note received patient with eyes closed, easy to arouse, a/ox3. no s/s of apparent distress in 2lpm of o2 via nc. denies pain at this time. reading sr 87bpm on the tele monitor at this time. right upper arm picc running ns @80cc/hr. Patient noted to have generalized edema 1+ on bilateral legs. Flexiseal and hubbard catheter draining via gravity. safety in place-- bed in lowest, locked position, call light within reach, bed rails up X4. Will continue with patient's plan of care and ensure to follow strict contact precaution.
[2022-11-09] MEDS: SENNOSIDES 8.6 MG TABLET PO SCH (22:00)
[2022-11-09] MEDS: DOCUSATE SODIUM 100 MG CAPSULE PO SCH (22:00)
[2022-11-09] MEDS: ATORVASTATIN 10 MG TABLET PO SCH (22:31)
[2022-11-10] VITALS: BP 128/82
[2022-11-10] MEDS: VANCOMYCIN HCL 125 MG/2.5 ML ORAL.SUSP PO SCH ×4 (00:13→17:21)
[2022-11-10 04:38] VITALS: BP 127/75
[2022-11-10] MEDS: methylPREDNISolone SOD SUCC 125 MG/2ML VIAL IV SCH (05:36)
[2022-11-10] MEDS: METRONIDAZOLE 500MG/ NS 100ML 500 MG in PREMIX 1 EA IV SCH (05:36)
--- NOTE | 2022-11-10 06:20 | NUR ---
noc rn note auditory wheezing heard, even patient c/o wheezing. Called Kaylie BELLO for PRN breathing treatment.
[2022-11-10] MEDS: ALBUTEROL FS 2.5 MG/3 ML VIAL.NEB IH PRN ×2 (06:30→10:35)
[2022-11-10 07:08] LABS: HEMATOCRIT 33 % (33-45); HEMOGLOBIN 10.5 g/dL (11.5-14.8); LYMPHOCYTES # (AUTO) 0.7 K/uL (0.8-4.8); LYMPHOCYTES % (AUTO) 6.5 % (20.0-44.0); MEAN CORPUSCULAR HGB CONC 32 g/dl (31.0-36.0); MEAN CORPUSCULAR VOLUME 96 fL (82-100); MONOCYTES # (AUTO) 0.1 K/uL (0.1-1.30); MONOCYTES % (AUTO) 1.4 % (2.0-12.0); NEUTROPHILS # (AUTO) 9.4 K/uL (1.8-8.9); NEUTROPHILS % (AUTO) 92.1 % (43.0-81.0); PLATELET COUNT (AUTO) 385 K/uL (150-450); RED BLOOD CELL COUNT(AUTO) 3.39 MIL/uL (4.0-5.2); WHITE BLOOD COUNT (AUTO) 10.2 K/uL (4.3-11.0)
--- NOTE | 2022-11-10 07:15 | NUR ---
noc rn closing note Patient in bed with eyes closed, easy to arouse. no s/s of apparent distress on 1lpm of o2 via nc. denies any pain nor discomfort. Velasquez cath draining via gravity, clear dark yellow urine. reading sr this am. all needs attended. scheduled meds administered. endorsed to Esther, morning shift RN's for continuity of patient care.
--- NOTE | 2022-11-10 07:22 | NUR ---
RN OPENING NOTES RECEIVED PATIENT IN BED AWAKE, PATIENT IS A/OX3, ABLE TO MAKE NEEDS KNOWN, NO SOB NOTED, BREATHING IS EVEN AND NOT LABORED, ON NASAL CANNULA AT 1 LPM SATURATING MYRNA 96%, IV ACCESS ON ADRIANO PICC WITH NS INFUSING AT 80 ML/HR, DRESSING IS DRY AND INTACT AND FLUSHING WELL, MORFIN CATHETER TO GRAVITY WITH SLIGHTLY CLOUDY URINE NOTED, PATIENT HAS RECTAL TUBE, INTACT, PATIENT IS ON GAUGE AND INSTRUMENT INSPECTOR WITH ST AT .WILL CONTINUE TO MONITOR DURING SHIFT. Addendum: 11/10/22 at 0755 by ROCK SYBIL SILVA RN RN OPENING NOTES RECEIVED PATIENT IN BED AWAKE, PATIENT IS A/OX3, ABLE TO MAKE NEEDS KNOWN, NO SOB NOTED, BREATHING IS EVEN AND NOT LABORED, ON NASAL CANNULA AT 1 LPM SATURATING MYRNA 96%, IV ACCESS ON ADRIANO PICC WITH NS INFUSING AT 80 ML/HR, DRESSING IS DRY AND INTACT AND FLUSHING WELL, MORFIN CATHETER TO GRAVITY WITH SLIGHTLY CLOUDY URINE NOTED, PATIENT HAS RECTAL TUBE, INTACT, PATIENT IS ON GAUGE AND INSTRUMENT INSPECTOR, ST WITH A HEART RATE OF 102 BPM, PATIENT DENIES ANY PAIN OR ANY DISCOMFORT AT THIS TIME, SAFETY MEASURES IN PLACE. KEPT BED IN LOCKED AND IN LOW POSITION. SIDE RAILS UP X2. CALL LIGHT WITHIN EASY REACH, WILL CONTINUE POC.
[2022-11-10 07:23] LABS: CREATININE 0.8 mg/dL (0.6-1.3); MAGNESIUM 1.9 mg/dL (1.8-2.4); PHOSPHORUS 2.7 mg/dL (2.5-4.9); POTASSIUM 3.9 mmol/L (3.5-5.1)
[2022-11-10 07:30] VITALS: BP 128/72
[2022-11-10 08:00] VITALS: BP 128/72
[2022-11-10] MEDS: ENSURE CLEAR 237 ML LIQUID (MIX BERRY) PO SCH (09:00)
[2022-11-10] MEDS: MULTIVIT W/MINERALS 1 TAB TABLET PO SCH (09:27)
[2022-11-10] MEDS: LACTOBACILLUS RHAMNOSUS GG 1 EACH CAP.SPRINK PO SCH (09:27)
[2022-11-10] MEDS: ASCORBIC ACID 500 MG TABLET PO SCH (09:27)
[2022-11-10] MEDS: CHOLECALCIFEROL 1,000 UNIT TABLET (VIT D3) PO SCH (09:27)
[2022-11-10] MEDS: CHOLESTYRAMINE/ASPARTAME 4 G/PKT PACKET PO SCH ×2 (09:28→22:27)
[2022-11-10] MEDS: ASPIRIN 81 MG TAB.CHEW PO SCH (09:28)
[2022-11-10] MEDS: PANTOPRAZOLE 40 MG/PACK PACK PO SCH (09:28)
[2022-11-10] MEDS: LIDOCAINE 5% (PATCH) 1 EA PATCH TP SCH (09:28)
[2022-11-10] MEDS: FLUTICASONE/VILANTEROL 1 EACH BLST.W.DEV IH SCH (09:29)
[2022-11-10] MEDS: PROSOURCE / PROSTAT (PYXIS) 30 ML UDC PO SCH ×2 (09:35→17:07)
[2022-11-10] MEDS: Z GUARD REMEDY 4 OZ OINT TP SCH (09:35)
[2022-11-10] MEDS: IV NS 0.9% 1,000 ML IV PRN ×2 (09:53→22:35)
--- NOTE | 2022-11-10 09:58 | NUR ---
RN NOTE RECTAL TUBE REMOVED PER ID MD ORDER. NO BM NOTED AT THIS TIME, WILL CONTINUE TO MONITOR PATIENT.
[2022-11-10] MEDS: methylPREDNISolone SOD SUCC 40 MG/ML VIAL IV SCH ×2 (11:59→16:56)
[2022-11-10] MEDS: GABAPENTIN 100 MG CAPSULE PO SCH ×2 (12:37→16:55)
[2022-11-10 16:00] VITALS: BP 130/71
--- NOTE | 2022-11-10 18:49 | NUR ---
RASHEED MS RACIEL NOTES RECEIVED PATIENT IN BED AWAKE, PATIENT IS A/OX3, ABLE TO MAKE NEEDS KNOWN, NO SOB NOTED, BREATHING IS EVEN AND NOT LABORED, ON NASAL CANNULA AT 1 LPM SATURATING MYRNA 96%, IV ACCESS ON ADRIANO PICC WITH NS INFUSING AT 80 ML/HR, DRESSING IS DRY AND INTACT AND FLUSHING WELL, MORFIN CATHETER TO GRAVITY WITH SLIGHTLY CLOUDY URINE NOTED, DC'D PATIENT'S RECTAL TUBE ORDERED, NO BM NOTED AT THIS TIME, PATIENT DENIES ANY PAIN OR ANY DISCOMFORT AT THIS TIME, FALL AND SAFETY MEASURES IN PLACE AND MAINTAINED AT ALL TIME, SCHEDULED MEDICATIONS ADMINISTERED, ALL NEEDS ATTENDED AND ANTICIPATED, WILL ENDORSE POC TO CERTIFIED ORTHOTIST/PEDORTHIST. Addendum: 11/10/22 at 1855 by ROCK SYBIL SILVA RN RASHEED SCHRADER NOTES PATIENT IS IN BED AWAKE, PATIENT IS A/OX3, ABLE TO MAKE NEEDS KNOWN, NO SOB NOTED, BREATHING IS EVEN AND NOT LABORED, ON NASAL CANNULA AT 1 LPM SATURATING MYRNA 96%, IV ACCESS ON ADRIANO PICC WITH NS INFUSING AT 80 ML/HR, DRESSING IS DRY AND INTACT AND FLUSHING WELL, MORFIN CATHETER TO GRAVITY WITH SLIGHTLY CLOUDY URINE NOTED, DC'D PATIENT'S RECTAL TUBE ORDERED, NO BM NOTED AT THIS TIME, PATIENT DENIES ANY PAIN OR ANY DISCOMFORT AT THIS TIME, FALL AND SAFETY MEASURES IN PLACE AND MAINTAINED AT ALL TIME, SCHEDULED MEDICATIONS ADMINISTERED, ALL NEEDS ATTENDED AND ANTICIPATED, WILL ENDORSE POC TO CERTIFIED ORTHOTIST/PEDORTHIST.
--- NOTE | 2022-11-10 19:30 | NUR ---
noc rn opening note received patient with eyes closed, easy to arouse, a/ox3. no s/s of apparent distress in 1lpm of o2 via nc. denies pain at this time. right upper arm picc running ns @80cc/hr. Patient noted to have generalized edema 1+ on bilateral legs. hubbard catheter draining via gravity. safety in place-- bed in lowest, locked position, call light within reach, bed rails up X4. Will continue with patient's plan of care.
[2022-11-10 20:00] VITALS: BP 106/69
[2022-11-10] MEDS: ATORVASTATIN 10 MG TABLET PO SCH (22:25)
[2022-11-10] MEDS: SENNOSIDES 8.6 MG TABLET PO SCH (22:25)
[2022-11-10] MEDS: DOCUSATE SODIUM 100 MG CAPSULE PO SCH (22:25)
[2022-11-11] MEDS: ACETAMINOPHEN 325 MG TABLET PO PRN ×2 (02:44→17:46)
--- NOTE | 2022-11-11 02:48 | NUR ---
noc rn note Patient c/o headache and requested for Tylenol. Given 650mg of Tylenol tab as ordered PRN. patient offered snacks but declined, will continue to monitor.
[2022-11-11] MEDS: VANCOMYCIN HCL 125 MG/2.5 ML ORAL.SUSP PO SCH ×5 (06:01→23:20)
[2022-11-11 06:28] LABS: BASOPHILS % (AUTO) 0.1 % (0.0-2.0); HEMATOCRIT 30 % (33-45); HEMOGLOBIN 9.5 g/dL (11.5-14.8); LYMPHOCYTES # (AUTO) 0.6 K/uL (0.8-4.8); LYMPHOCYTES % (AUTO) 6.6 % (20.0-44.0); MEAN CORPUSCULAR HGB CONC 32 g/dl (31.0-36.0); MEAN CORPUSCULAR VOLUME 99 fL (82-100); MONOCYTES # (AUTO) 0.4 K/uL (0.1-1.30); MONOCYTES % (AUTO) 3.8 % (2.0-12.0); NEUTROPHILS # (AUTO) 8.8 K/uL (1.8-8.9); NEUTROPHILS % (AUTO) 89.5 % (43.0-81.0); PLATELET COUNT (AUTO) 334 K/uL (150-450); RED BLOOD CELL COUNT(AUTO) 3.04 MIL/uL (4.0-5.2); WHITE BLOOD COUNT (AUTO) 9.8 K/uL (4.3-11.0)
[2022-11-11 06:31] LABS: CALCIUM, SERUM 7.7 mg/dL (8.5-10.1); CREATININE 0.8 mg/dL (0.6-1.3); MAGNESIUM 1.9 mg/dL (1.8-2.4); PHOSPHORUS 2.1 mg/dL (2.5-4.9); POTASSIUM 3.9 mmol/L (3.5-5.1)
[2022-11-11 07:00] VITALS: BP 117/71
--- NOTE | 2022-11-11 07:46 | NUR ---
RN OPENING NOTES RECEIVED PATIENT IN BED AWAKE, PATIENT IS A/OX3, ABLE TO MAKE NEEDS KNOWN, NO SOB NOTED, BREATHING IS EVEN AND NOT LABORED, NO C/O OF PAIN AND DISCOMFORT , ON ROOM AIR , IV ACCESS ON ADRIANO PICC WITH NS INFUSING AT 80 ML/HR, DRESSING IS DRY AND INTACT , MORFIN CATHETER TO GRAVITY WITH YELLOW COLORED ,SAFETY MEASURES PROVIDED .WILL CONTINUE TO MONITOR DURING SHIFT.
[2022-11-11] MEDS: ASPIRIN 81 MG TAB.CHEW PO SCH (08:41)
[2022-11-11] MEDS: LIDOCAINE 5% (PATCH) 1 EA PATCH TP SCH ×2 (08:41→09:00)
[2022-11-11] MEDS: ASCORBIC ACID 500 MG TABLET PO SCH (08:42)
[2022-11-11] MEDS: GABAPENTIN 100 MG CAPSULE PO SCH ×3 (08:42→16:29)
[2022-11-11] MEDS: methylPREDNISolone SOD SUCC 40 MG/ML VIAL IV SCH (08:42)
[2022-11-11] MEDS: LACTOBACILLUS RHAMNOSUS GG 1 EACH CAP.SPRINK PO SCH (08:42)
[2022-11-11] MEDS: PROSOURCE / PROSTAT (PYXIS) 30 ML UDC PO SCH ×2 (08:42→16:29)
[2022-11-11] MEDS: CHOLECALCIFEROL 1,000 UNIT TABLET (VIT D3) PO SCH (08:42)
[2022-11-11] MEDS: MULTIVIT W/MINERALS 1 TAB TABLET PO SCH (08:42)
[2022-11-11] MEDS: PANTOPRAZOLE 40 MG/PACK PACK PO SCH (08:42)
[2022-11-11] MEDS: CHOLESTYRAMINE/ASPARTAME 4 G/PKT PACKET PO SCH ×2 (09:40→21:35)
[2022-11-11] MEDS: Z GUARD REMEDY 4 OZ OINT TP SCH (10:58)
[2022-11-11] MEDS: FLUTICASONE/VILANTEROL 1 EACH BLST.W.DEV IH SCH (10:58)
[2022-11-11] MEDS ORDERED: K PHOS NEUTRAL 250 MG TABLET PO ONE ×2 (11:00→11:30)
[2022-11-11 16:00] VITALS: BP 120/73
[2022-11-11] MEDS: IV NS 0.9% 1,000 ML IV PRN (17:50)
--- NOTE | 2022-11-11 18:34 | NUR ---
RN CLOSING NOTES PATIENT IN BED AWAKE, PATIENT IS A/OX3, ABLE TO MAKE NEEDS KNOWN, NO SOB NOTED, BREATHING IS EVEN AND NOT LABORED, C/O OF PAIN AND DISCOMFORT AND TYLENOL GIVEN ORDERED , ON ROOM AIR , IV ACCESS ON ADRIANO PICC WITH NS INFUSING AT 80 ML/HR, DRESSING IS DRY AND INTACT , MORFIN CATHETER TO GRAVITY WITH YELLOW COLORED , ALL DUE MEDS GIVEN ORDERED , SAFETY MEASURES PROVIDED ENDORSED TO NEXT SHIFT
--- NOTE | 2022-11-11 19:30 | NUR ---
MS RN OPENING NOTE RECEIVED PATIENT FROM AM NURSE; PATIENT AWAKE IN BED, A/O X 3, ABLE TO MAKE NEEDS KNOWN; STABLE ON ROOM AIR, BREATHING EVENLY AND NO S/S OF DISTRESS NOTED; WITH PICC LINE ACCESS AT ADRIANO WITH NORMAL SALINE INFUSING AT 80 ML/HR,; DRESSING IS DRY AND INTACT; WITH MORFIN CATHETER IN PLACE DRAINING TO GRAVITY WITH YELLOW COLORED URINE; ENCOURAGED VERBALIZATION OF NEEDS; SAFETY MEASURES IMPLEMENTED, BED LOCKED IN LOWEST POSITION, SIDE RAILS UP X 4, CALL LIGHT AND TABLE WITHIN REACH; WILL CONTINUE TO MONITOR THROUGHOUT SHIFT
[2022-11-11 20:00] VITALS: BP 109/59
[2022-11-11] MEDS: DOCUSATE SODIUM 100 MG CAPSULE PO SCH (21:35)
[2022-11-11] MEDS: ATORVASTATIN 10 MG TABLET PO SCH (21:35)
[2022-11-11] MEDS: SENNOSIDES 8.6 MG TABLET PO SCH (21:35)
[2022-11-12] MEDS: VANCOMYCIN HCL 125 MG/2.5 ML ORAL.SUSP PO SCH ×2 (05:48→12:33)
[2022-11-12 06:38] LABS: CALCIUM, SERUM 7.8 mg/dL (8.5-10.1); CARBON DIOXIDE 22 mmol/L (21-32); CHLORIDE 110 mmol/L (98-107); CREATININE 0.7 mg/dL (0.6-1.3); GLUCOSE 105 mg/dL (74-106); PHOSPHORUS 2.3 mg/dL (2.5-4.9); POTASSIUM 3.6 mmol/L (3.5-5.1); SODIUM SERUM 138 mmol/L (136-145); UREA NITROGEN, BLOOD 28 mg/dL (7-18)
--- NOTE | 2022-11-12 06:48 | NUR ---
MS RN CLOSING NOTE PATIENT AWAKE IN BED, A/O X 3, ABLE TO MAKE NEEDS KNOWN; STABLE ON ROOM AIR, BREATHING EVENLY AND NO S/S OF DISTRESS NOTED; WITH PICC LINE ACCESS AT ADRIANO WITH NORMAL SALINE INFUSING AT 80 ML/HR, DRESSING IS DRY AND INTACT; WITH MORFIN CATHETER IN PLACE DRAINING TO GRAVITY WITH YELLOW COLORED URINE APPROXIMATELY 650 ML; ADMINISTERED MEDICATIONS PRESCRIBED; PATIENT'S NEEDS ATTENDED; MONITORED PATIENT ACCORDINGLY; NO COMPLAINTS OF PAIN AND DISCOMFORT AT THIS TIME; SAFETY MEASURES IMPLEMENTED, BED LOCKED IN LOWEST POSITION, SIDE RAILS UP X 4, CALL LIGHT AND TABLE WITHIN REACH; WILL ENDORSE TO AM NURSE FOR PEGGY.
[2022-11-12 07:00] VITALS: BP 122/99
--- NOTE | 2022-11-12 07:25 | NUR ---
MS RN OPENING NOTE RECEIVED PATIENT IN BED, AWAKE, A/O X 3. ABLE TO MAKE NEEDS KNOWN; ON ROOM AIR TOLERATING WELL. NO SOB NOTED, BREATHING EVENLY AND UNLABORED. SO SIGNS OF ACUTE DISTRESS NOTED. NOTED WITH PICC LINE ACCESS AT ADRIANO WITH NORMAL SALINE INFUSING AT 80 ML/HR; DRESSING IS DRY AND INTACT. WITH MORFIN CATHETER IN PLACE DRAINING TO GRAVITY WITH YELLOW COLORED URINE. DENIES PAIN AT THIS TIME. SAFETY MEASURES IMPLEMENTED, BED IN LOW AND LOCKED POSITION, SIDE RAILS UP X 4, CALL LIGHT AND TABLE WITHIN REACH; WILL CONTINUE WITH PLAN OF CARE.
[2022-11-12] MEDS: LIDOCAINE 5% (PATCH) 1 EA PATCH TP SCH (08:34)
[2022-11-12] MEDS: CHOLECALCIFEROL 1,000 UNIT TABLET (VIT D3) PO SCH (08:35)
[2022-11-12] MEDS: MULTIVIT W/MINERALS 1 TAB TABLET PO SCH (08:35)
[2022-11-12] MEDS: ASPIRIN 81 MG TAB.CHEW PO SCH (08:35)
[2022-11-12] MEDS: GABAPENTIN 100 MG CAPSULE PO SCH ×3 (08:35→16:21)
[2022-11-12] MEDS: LACTOBACILLUS RHAMNOSUS GG 1 EACH CAP.SPRINK PO SCH (08:35)
[2022-11-12] MEDS: PANTOPRAZOLE 40 MG/PACK PACK PO SCH (08:35)
[2022-11-12] MEDS: ASCORBIC ACID 500 MG TABLET PO SCH (08:35)
[2022-11-12] MEDS: CHOLESTYRAMINE/ASPARTAME 4 G/PKT PACKET PO SCH (08:35)
[2022-11-12] MEDS: ALENDRONATE 70 MG TABLET PO SCH (08:39)
[2022-11-12] MEDS ORDERED: methylPREDNISolone SOD SUCC 40 MG/ML VIAL IV SCH (09:00)
--- NOTE | 2022-11-12 09:00 | NUR ---
MS RASHEED CHECKED THE ADRIANO PICC LINE; DRESSING IS DRY AND INTACT, LINE IS FLUSHING WELL.
[2022-11-12] MEDS: Z GUARD REMEDY 4 OZ OINT TP SCH (09:31)
[2022-11-12] MEDS: FLUTICASONE/VILANTEROL 1 EACH BLST.W.DEV IH SCH (09:31)
[2022-11-12] MEDS: PROSOURCE / PROSTAT (PYXIS) 30 ML UDC PO SCH ×2 (09:46→16:21)
[2022-11-12] MEDS ORDERED: VANC125C11 PO (11:35)
[2022-11-12] MEDS ORDERED: CHOL4PAC4 PO (11:35)
[2022-11-12] MEDS ORDERED: NEUTRA PHOS 1 POWD.PACKET PO ONE (16:00)
--- NOTE | 2022-11-12 16:36 | NUR ---
MS FAMILY PSYCHOLOGIST NOTES PATIENT WAS DISCHARGED ORDERED. PATIENT IS TO BE DISCHARGED BACK AT [facility] [place], ROOM 111-B. GIVEN REPOST TO RASHEED LOPEZ VIA PHONE CALL AT [phone]. PATIENT IS AWAKEA AND A/O X3. ON ROOM AIR TOLERATING WEEL. PATIENT IS NOT DISTRESS. PATIENT SIGNED ALL THE DISCHARGE FORMS BUT REFUSED PHOTO DOCUMENTATION OF ELA/SACRAL REDNESS. WRIST BAND REMOVED. PATIENT HAS ADRIANO PICC LINE AND MORFIN CATHETER PER SNF'S REQUEST. PATIENT WAS PICKED UP BY EMT VIA GURNEY AND TRANSPORTED BY AMBULANCE IN STABLE CONDITION. CHARGE NURSE IS AWARE OF THE DISCHARGE.
== END 2022-11-12 16:59 | DRG 871 ==
LOC: ER 18:12 → TRANSITION 11-03 01:21 → ICU 11-03 03:27 → TELE 11-09 10:27 → MED 11-10 11:39
PROVIDERS: ADMIT Internal Medicine; ATTEND Student in an Organized Health Care Education/Training Program
PROC: 02HV33Z Insertion of Infusion Device into Superior Vena Cava, Percutaneous Approach (ICD-10-PCS; principal; 2022-11-03)
PROC: B548ZZA Ultrasonography of Superior Vena Cava, Guidance (ICD-10-PCS; 2022-11-03)
DX: A41.9 Sepsis, unspecified organism (principal); E43 Unspecified severe protein-calorie malnutrition; R65.21 Severe sepsis with septic shock; N17.0 Acute kidney failure with tubular necrosis; A04.72 Enterocolitis due to Clostridium difficile, not specified as recurrent; E87.20 Acidosis, unspecified; E87.1 Hypo-osmolality and hyponatremia; M48.54XA Collapsed vertebra, not elsewhere classified, thoracic region, initial encounter for fracture; E27.40 Unspecified adrenocortical insufficiency; B37.49 Other urogenital candidiasis; E87.6 Hypokalemia; E86.1 Hypovolemia; D63.8 Anemia in other chronic diseases classified elsewhere; Z90.710 Acquired absence of both cervix and uterus; Z85.42 Personal history of malignant neoplasm of other parts of uterus; Z92.3 Personal history of irradiation; E86.0 Dehydration; E88.09 Other disorders of plasma-protein metabolism, not elsewhere classified; I70.0 Atherosclerosis of aorta; J45.909 Unspecified asthma, uncomplicated; N32.89 Other specified disorders of bladder; Z20.822 Contact with and (suspected) exposure to COVID-19
CPT/HCPCS: 36415; 71045-TC; 76770-TC; 80048-TC; 80053-TC; 80076-TC; 80202-TC; 81001; 82533; 82570-TC; 83605-TC; 83735-TC; 83880; 84100-TC; 84132-TC; 84300-TC; 84443-TC; 84484-TC; 85025-TC; 87040-TC; 87081-TC; 87086-TC; 92526; 92611-TC; 93307-TC; 94799-TC; 97110-TC; 97530-TC; A4216; A4223; C9113; C9803; G0378; J0692; J2270; J2370; J2405; J2543; J2765; J2920; J2930; J3370; J3475; J3480; J7030; J7040; J7050; J7060